=== PATIENT | female | born 1995 | race Two or more races ===

== ENCOUNTER 2019-07-13 21:19 | Emergency (ER) | payer OTHER, MEDICAID ==
[2019-07-13 21:33] VITALS: BP 126/60
--- NOTE | 2019-07-13 21:51 | ED Physician Documentation ---
PD HPI UPPER EXT INJURY - Stated complaint Stated Complaint: RT HAND LAC - Chief complaint Chief Complaint: Laceration - History obtained from History obtained from: Patient PD PAST MEDICAL HISTORY - Past Medical History Past Medical History: Yes Psych: Depression, Anxiety - Past Surgical History Past Surgical History: No - Present Medications Home Medications: Ambulatory Orders Medication Instructions Recorded Confirmed [place] Carbonate 900 mg PO DAILY 07/13/19 07/13/19 Propranolol [Inderal] 10 mg PO DAILY 07/13/19 07/13/19 buPROPion [Wellbutrin Xl] 150 mg PO DAILY 07/13/19 07/13/19 - Allergies Allergies/Adverse Reactions: Allergies Allergy/AdvReac Type Severity Reaction Status Date / Time No Known Drug Allergies Allergy Verified 07/13/19 21:29 - Social History Does the pt smoke?: No Smoking Status: Never smoker Does the pt drink ETOH?: No Does the pt have substance abuse?: No - Immunizations Immunizations are current?: Yes - POLST Patient has POLST: No Results - Vitals Vitals: Vital Signs - 24 hr 07/13/19 21:20 Temperature 36.5 C Heart Rate 64 Respiratory 16 Rate Blood Pressure 126/60 O2 Saturation 100 Oxygen O2 Source Room air
--- NOTE | 2019-07-13 21:51 | ED Physician Documentation ---
History of Present Illness - Stated complaint Stated Complaint: RT HAND LAC - Chief complaint Chief Complaint: Laceration - Additonal information Additional information: This is a 24-year-old female who presents with a laceration to her right hand. Patient was getting ready to cut a lemon and she accidentally sliced herself with a clean knife in her dorsal inter-webspace on her right hand. The bleeding was controlled with a rag. She denies any numbness or tingling and she can move her fingers normally. Her tetanus is up-to-date. Review of Systems Skin: reports: Laceration (s) Musculoskeletal: reports: Extremity pain PD PAST MEDICAL HISTORY - Past Medical History Past Medical History: Yes Psych: Depression, Anxiety - Past Surgical History Past Surgical History: No - Present Medications Home Medications: Ambulatory Orders Medication Instructions Recorded Confirmed [place] Carbonate 900 mg PO DAILY 07/13/19 07/13/19 Propranolol [Inderal] 10 mg PO DAILY 07/13/19 07/13/19 buPROPion [Wellbutrin Xl] 150 mg PO DAILY 07/13/19 07/13/19 - Allergies Allergies/Adverse Reactions: Allergies Allergy/AdvReac Type Severity Reaction Status Date / Time No Known Drug Allergies Allergy Verified 07/13/19 21:29 - Social History Does the pt smoke?: No Smoking Status: Never smoker Does the pt drink ETOH?: No Does the pt have substance abuse?: No - Immunizations Immunizations are current?: Yes - POLST Patient has POLST: No PD ED PE NORMAL - Vitals Vital signs reviewed: Yes - General General: Alert and oriented X 3 - HEENT HEENT: Atraumatic - Respiratory Respiratory: No respiratory distress - Abdomen Abdomen: Non distended - Extremities Extremities: Other (There is a 3 cm laceration in the right first inter- webspace. This extends only in the subcutaneous tissue. Sensation is intact light touch over all aspects of the thumb and first finger, as well as over the hand. There is no exposed bone or tendon, patient has 5-5 strength with extension and flexion of her finger at the MCP PIP and DIP against resistance with the first finger, and normal flexion extension abduction and abduction of her thumb. Capillary refill is brisk.) Results - Vitals Vitals: Vital Signs - 24 hr 07/13/19 21:20 Temperature 36.5 C Heart Rate 64 Respiratory 16 Rate Blood Pressure 126/60 O2 Saturation 100 Oxygen O2 Source Room air Procedures - Laceration (location) R hand Length in cm: 3 Wound type: Linear Neurovascular status: Sensory intact, Motor intact, Vascular intact Tendon involvement: Tendon intact Anesthesia: Lidocaine 1%, With bicarb Wound Preparation: Irrigated copiously NS, Wound explored, To the base Skin layer closure: Nylon, Other (5-0) Other: Patient tolerated well, No complications, Dressing applied, Tetanus UTD Complexity: Simple PD MEDICAL DECISION MAKING - ED course Complexity details: considered differential (Laceration, tendon injury, vascular injury nerve injury) ED course: Patient presents with a simple laceration to her dorsal hand with no signs of tendon nerve or deep structure involvement. it extends only to subcutaneous tissue. Is a clean wound, it was irrigated copiously with normal saline, and repaired as noted above. The end result was excellent with very good wound edge approximation. Wound care and follow-up was discussed with the patient, as well as return precautions with emphasis on signs of infection. Patient agreed with this plan and was discharged home in care of her mother Departure - Departure Disposition: 01 Home, Self Care Clinical Impression: Laceration Condition: Good Instructions: ED Laceration All Follow-Up: Your,PCP [Other] (In 10 days for check for suture removal) Comments: Your cut has been repaired with stitches, please keep a clean bandage over the laceration, you may apply a thin layer of antibiotic ointment over the cut. Your stitches should be checked for removal in 10 days. You may take a shower and wash the hand, but do not scrub at the wound. If you see signs of infection such as redness expanding out from the cut, or pus draining from the wound, or if you are having severe pain in the hand, come back for recheck.
== END 2019-07-13 22:20 | disposition home or self-care (01) ==
LOC: ED 21:19
DX: S61.411A Laceration without foreign body of right hand, initial encounter (principal); W26.0XXA Contact with knife, initial encounter; Y93.G1 Activity, food preparation and clean up; Y99.0 Civilian activity done for income or pay
CPT/HCPCS: 12002; 99281

== ENCOUNTER 2019-11-07 13:51 | Outpatient (CLI) | payer MEDICAID | END 2019-11-07 13:52 | disposition home or self-care (01) | LOC: COV 13:51 | PROVIDERS: ATTEND Family Medicine | DX: R05 Cough (principal); R50.9 Fever, unspecified | CPT/HCPCS: 81599 ==

== ENCOUNTER 2020-11-21 15:43 | Emergency (ER) | payer MEDICAID ==
--- OUTSIDE RECORDS SUMMARY | 2020-11-21 15:52 | EXTERNAL MEDICAL SUMMARY RPT | Continuity of Care Document ---
:1995 Demographics Phone Unavailable Preferred Language Unknown Marital Status Unknown Advent Affiliation Unknown Race Unknown Ethnic Group Unknown Author Organization [facility] Address [address] [phone] Phone Social History date description facility [phone]
[2020-11-21 15:56] VITALS: BP 131/72
[2020-11-21] MEDS ORDERED: LIDOCAINE 2%-EPI 1:100000 20 ML MDV SUBQ STA (16:12)
[2020-11-21] MEDS ORDERED: LIDOCAINE 1%-EPI 1:100000 20 ML MDV SUBQ STA (16:19)
[2020-11-21] MEDS ORDERED: LIDOCAINE 1% 2 ML VIAL MC ONE (16:34)
[2020-11-21] MEDS ORDERED: cefTRIAXone 1 GM VIAL IM STA (16:34)
--- NOTE | 2020-11-21 16:37 | ED Physician Documentation ---
History of Present Illness - Stated complaint Stated Complaint: WOUND ON CHEST - Chief complaint Chief Complaint: General - History obtained from History obtained from: Patient - History of Present Illness Timing: How many weeks ago (1) Pain level max: 7 Pain level now: 7 - Additonal information Additional information: Patient is a 25-year-old female who presents to the emergency department with an abscess to the right breast. She states a small amount was drained several days ago at a clinic in [place]. She states she was on Keflex, but they told her to stop that and placed her on Bactrim instead. She states that today there was spontaneous drainage from the breast of pus. Nothing makes it better or worse. No fevers. No chills. Is not breast-feeding. Does have a nipple piercing. This has been present for 2 years. Denies any possibility of . Review of Systems Constitutional: denies: Fever, Chills Cardiac: denies: Chest pain / pressure Respiratory: denies: Cough GI: denies: Nausea, Vomiting, Diarrhea Skin: denies: Rash Musculoskeletal: denies: Neck pain, Back pain Neurologic: denies: Headache PD PAST MEDICAL HISTORY - Past Medical History Past Medical History: Yes Psych: Depression, Anxiety - Past Surgical History Past Surgical History: No - Present Medications Home Medications: Ambulatory Orders Medication Instructions Recorded Confirmed [place] Carbonate 900 mg PO DAILY 07/13/19 07/13/19 Propranolol [Inderal] 10 mg PO DAILY 07/13/19 07/13/19 buPROPion [Wellbutrin Xl] 150 mg PO DAILY 07/13/19 07/13/19 Cetirizine HCl/Pseudoephedrine 1 each PO BID PRN #30 tab.er.12h 03/03/20 [Zyrtec-D Tablet] Ibuprofen [Motrin] 800 mg PO Q8H PRN #30 tablet 03/03/20 HYDROcod/ACETAM 5/325 [[place] 5/325] 1 - 2 ea PO Q6H PRN #14 tablet 11/21/20 Sulfamethox/Trimeth 800/160 1 each PO BID #14 tablet 11/21/20 [Bactrim Ds 800/160] cephALEXin [Keflex] 500 mg PO Q6H #28 cap 11/21/20 - Allergies Allergies/Adverse Reactions: Allergies Allergy/AdvReac Type Severity Reaction Status Date / Time No Known Drug Allergies Allergy Verified 03/03/20 11:50 - Social History Does the pt smoke?: No Smoking Status: Never smoker Does the pt drink ETOH?: No Does the pt have substance abuse?: No - Immunizations Immunizations are current?: Yes - POLST Patient has POLST: No PD ED PE NORMAL - Vitals Vital signs reviewed: Yes - General General: Alert and oriented X 3, No acute distress - HEENT HEENT: Moist mucous membranes - Neck Neck: Supple, no meningeal sign - Cardiac Cardiac: RRR - Respiratory Respiratory: No respiratory distress, Clear bilaterally - Abdomen Abdomen: Soft, Non tender, Non distended - Derm Derm: Warm and dry - Neuro Neuro: Alert and oriented X 3 - Free text exam Free text exam: Right breast is diffusely cellulitic. There is a small drainable abscess just lateral to the nipple at the 9 o'clock position, this is superficial on ultrasound. There are no deep abscesses visible. Results - Vitals Vitals: Vital Signs - 24 hr 11/21/20 15:50 Temperature 37.1 C Heart Rate 100 Respiratory 14 Rate Blood Pressure 131/72 H O2 Saturation 100 Oxygen O2 Source Room air Procedures - Abscess I&D (location) Right breast Preparation: Confirmed with ultrasound, Chlorhexadine, Lidocaine 1%, With epi Incision: Incised with scalpel, Purulent drainage, Culture obtained Other: Pt tolerated well, Dressing applied, Antibiotic prescribed PD MEDICAL DECISION MAKING - ED course Complexity details: considered differential, d/w patient ED course: 25-year-old female with a right breast abscess and cellulitis. Given a shot of Rocephin here. We will place her on Bactrim and Keflex together. Will prescribe pain medication as well. There was only a small superficial abscess, most of the breast is cellulitis, therefore a small incision was made to drain the abscess. She will run warm water over this 2-3 times daily. Also recommended that she remove her nipple piercing. Patient is not or breast-feeding. The patient will return in 2 days for a wound check. Patient counseled regarding signs and symptoms for which I believe and urgent re- evaluation would be necessary. Patient with good understanding of and agreement to plan and is comfortable going home at this time This document was made in part using voice recognition software. While efforts are made to proofread this document, sound alike and grammatical errors may occur. Departure - Departure Disposition: 01 Home, Self Care Clinical Impression: Breast abscess Condition: Good Instructions: ED Abscess IandD Follow-Up: Provider,Other [Primary Care Provider] - Within 1 week Prescriptions: Sulfamethox/Trimeth 800/160 [Bactrim Ds 800/160] 1 each PO BID #14 tablet cephALEXin [Keflex] 500 mg PO Q6H #28 cap HYDROcod/ACETAM 5/325 [[place] 5/325] 1 - 2 ea PO Q6H PRN #14 tablet PRN Reason: Pain Comments: Return in 2 days for a wound check. Take all antibiotics until gone. We want you on both the Bactrim and Keflex. Will prescribe you pain medication as well. Take a warm shower tonight and let water run over the area that was drained. We did drain a fair amount of pus from your breast tonight. Do not drink alcohol or drive while on narcotic pain medicine. Note that many narcotic pain relievers also contain tylenol/acetaminophen. Please ensure that your total dose of acetaminophen from all sources does not exceed 3 grams (3000mg) per day. You may constipated on this medication, take a stool softener such as "Colace" twice a day while you are on it. Also recommend a [id number] laxative such as senna or MiraLAX any day that you do not have a bowel movement. If you received narcotic pain medication in the emergency department, do not drive or operate machinery for the next 24 hours.
== END 2020-11-21 16:54 | disposition home or self-care (01) ==
LOC: ED 15:43
DX: N61.1 Abscess of the breast and nipple (principal)
CPT/HCPCS: 10060; 87070; 87205

== ENCOUNTER 2020-11-23 17:51 | Emergency (ER) | payer MEDICAID ==
--- OUTSIDE RECORDS SUMMARY | 2020-11-23 17:55 | EXTERNAL MEDICAL SUMMARY RPT | Continuity of Care Document ---
:1995 Demographics Phone Unavailable Preferred Language Unknown Marital Status Unknown Gnosticism Affiliation Unknown Race Unknown Ethnic Group Unknown Author Organization [facility] Address [address] [place] [address] Phone Social History date description facility [phone]
--- OUTSIDE RECORDS SUMMARY | 2020-11-23 18:07 | EXTERNAL MEDICAL SUMMARY RPT | Continuity of Care Document ---
:1995 Demographics Phone Unavailable Preferred Language Unknown Marital Status Unknown Jewish Affiliation Unknown Race Unknown Ethnic Group Unknown Author Organization [facility] Address [address] [place] [address] Phone Social History date description facility [phone]
--- NOTE | 2020-11-23 18:23 | ED Physician Documentation ---
PD HPI WOUND RECHECK - Stated complaint Stated Complaint: WOUND CHECK - Chief complaint Chief Complaint: Wound - Histroy obtained from History obtained from: Patient - Additional information Additional information: Seen here 2 days ago for breast abscess that was incised and drained. She was feeling a little sick overnight that night and yesterday morning but better now. Generally feels like she is improving, no fevers. Review of Systems Constitutional: denies: Fever, Chills Eyes: reports: Reviewed and negative Ears: reports: Reviewed and negative Nose: reports: Reviewed and negative Cardiac: reports: Reviewed and negative PD PAST MEDICAL HISTORY - Past Medical History Psych: Depression, Anxiety - Past Surgical History Past Surgical History: No - Present Medications Home Medications: Ambulatory Orders Medication Instructions Recorded Confirmed [place] Carbonate 900 mg PO DAILY 07/13/19 11/23/20 Ibuprofen [Motrin] 800 mg PO Q8H PRN #30 tablet 03/03/20 11/23/20 HYDROcod/ACETAM 5/325 [[place] 5/325] 1 - 2 ea PO Q6H PRN #14 tablet 11/21/20 11/23/20 Sulfamethox/Trimeth 800/160 1 each PO BID #14 tablet 11/21/20 11/23/20 [Bactrim Ds 800/160] cephALEXin [Keflex] 500 mg PO Q6H #28 cap 11/21/20 11/23/20 Cetirizine HCl/Pseudoephedrine 1 each PO DAILY 11/23/20 11/23/20 [Zyrtec-D Tablet] - Allergies Allergies/Adverse Reactions: Allergies Allergy/AdvReac Type Severity Reaction Status Date / Time No Known Drug Allergies Allergy Verified 11/23/20 18:01 - Social History Does the pt smoke?: No Smoking Status: Never smoker Does the pt drink ETOH?: No Does the pt have substance abuse?: No - Immunizations Immunizations are current?: Yes - POLST Patient has POLST: No PD ED PE NORMAL - Vitals Vital signs reviewed: Yes - General General: Alert and oriented X 3, No acute distress - Extremities Extremities: Other (Some persistent cellulitis around 9:00 of the right breast, exam done with [place] tach. Bedside ultrasound demonstrates no fluid collection.) - Neuro Neuro: Alert and oriented X 3, Normal speech Results - Vitals Vitals: Vital Signs - 24 hr 11/23/20 17:54 Temperature 36.9 C Heart Rate 96 Respiratory 16 Rate Blood Pressure 127/71 O2 Saturation 100 Oxygen O2 Source Room air Departure - Departure Disposition: 01 Home, Self Care Clinical Impression: Breast abscess Condition: Good Record reviewed to determine appropriate education?: Yes Instructions: ED Abscess IandD Comments: Generally looks like it is improving, return if worsening or if you run a fever. Continue the current antibiotics.
[2020-11-23 18:27] VITALS: BP 122/77
== END 2020-11-23 18:35 | disposition home or self-care (01) ==
LOC: ED 17:51
DX: N61.1 Abscess of the breast and nipple (principal); Z48.00 Encounter for change or removal of nonsurgical wound dressing

== ENCOUNTER 2021-08-07 17:56 | Emergency (ER) | payer MEDICAID ==
[2021-08-07] MEDS ORDERED: ALBUTEROL 1 PUFF INH STA (18:42)
--- NOTE | 2021-08-07 18:57 | ED Physician Documentation ---
History of Present Illness - Stated complaint Stated Complaint: COUGH,CHEST TIGHTNESS - Chief complaint Chief Complaint: Resp - Additonal information Additional information: 26-year-old female presents emergency department for evaluation of dry cough for 2 days. No fevers no vomiting. She has had some mild diarrhea. She is fully vaccinated for COVID-19 and denies any sick contacts. She began getting concerned when she was having a hard time catching her breath. Denies any asthma or COPD. Non-smoker. No pertinent past medical history. Takes no prescribed medications with the exception of OCP. Review of Systems Constitutional: denies: Fever, Chills Eyes: reports: Reviewed and negative Ears: reports: Reviewed and negative Nose: reports: Reviewed and negative Throat: reports: Reviewed and negative Cardiac: reports: Reviewed and negative Respiratory: reports: Cough. denies: Dyspnea, Wheezing GI: denies: Abdominal Pain, Nausea, Vomiting : denies: Dysuria, Frequency, Hesitancy Skin: denies: Lesions Musculoskeletal: reports: Reviewed and negative PD PAST MEDICAL HISTORY - Past Medical History Past Medical History: Yes Cardiovascular: None Respiratory: None Neuro: None Endocrine/Autoimmune: None GI: None JOB SITE SUPERVISOR: None : None HEENT: None Psych: Depression, Anxiety, Bipolar disorder Musculoskeletal: None Derm: None - Past Surgical History Past Surgical History: No - Present Medications Home Medications: Ambulatory Orders Medication Instructions Recorded Confirmed [place] Carbonate 900 mg PO DAILY 07/13/19 08/07/21 Albuterol Sulf [Ventolin Hfa 1 - 2 puffs INH Q4HR PRN #1 inhaler 08/07/21 Inhaler] Benzonatate [Tessalon] 200 mg PO TID PRN #20 cap 08/07/21 Citalopram Hydrobromide [Celexa] 20 mg ORAL DAILY 08/07/21 08/07/21 Norethindrone-E.estradiol-Iron 1 each PO DAILY 08/07/21 08/07/21 [[place] 24 Fe 1 mg-20 Mcg Tablet] - Allergies Allergies/Adverse Reactions: Allergies Allergy/AdvReac Type Severity Reaction Status Date / Time No Known Drug Allergies Allergy Verified 08/07/21 18:07 - Social History Does the pt smoke?: No Smoking Status: Never smoker Does the pt drink ETOH?: No Does the pt have substance abuse?: Yes Substance Use and Type: Marijuana - Immunizations Immunizations are current?: Yes - POLST Patient has POLST: No PD ED PE NORMAL - General General: Alert and oriented X 3, No acute distress - HEENT HEENT: PERRL - Cardiac Cardiac: RRR, No murmur, No gallop, Other (Mild tachycardia at rest with a heart rate between 100-110) - Respiratory Respiratory: No respiratory distress, Clear bilaterally - Back Back: No CVA TTP, No spinal TTP - Derm Derm: Normal color, Warm and dry - Extremities Extremities: No deformity, No tenderness to palpate, Normal ROM s pain - Neuro Neuro: Alert and oriented X 3, 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 Eye Opening: Spontaneous Motor: Obeys Commands Verbal: Oriented GCS Score: 15 - Psych Psych: Normal mood Results - Vitals Vitals: Vital Signs - 24 hr 08/07/21 08/07/21 08/07/21 18:02 18:45 19:12 Temperature 36.5 C 37.7 C Heart Rate 124 H 115 H 80 Respiratory 20 20 18 Rate Blood Pressure 124/80 151/73 H O2 Saturation 100 100 Oxygen O2 Source Room air - Rads (name of study) CXR Radiology: Final report received (No acute cardiopulmonary process.) PD MEDICAL DECISION MAKING - ED course Complexity details: reviewed results, re-evaluated patient, considered differential, d/w patient ED course: 26-year-old female presents emergency department for evaluation of 2 days cough, cold, congestion myalgias. No fevers. Fully vaccinated for COVID-19. She typically has a dry cough that gets worse whenever she goes out in the cold or exerts herself too much. No history of asthma. Denies any sick contacts. Initially presented mildly tachycardic with a heart rate in the 120s but after rest here in the ER she has normalized her heart rate into the 80s and 90s. Room air saturations are normal. Chest x-ray was without acute findings. Cardiopulmonary auscultation was unremarkable. Patient was given albuterol MDI here in the emergency department with good relief of her cough. She will be discharged with prescription for Tessalon Perles as well as albuterol. A Covid screen is pending. Patient is advised to maintain quarantine until the results are known. Emergent return precautions otherwise discussed. Departure - Departure Disposition: 01 Home, Self Care Clinical Impression: Upper respiratory infection Qualifiers: URI type: unspecified viral URI Qualified Code(s): J06.9 - Acute upper respirat ory infection, unspecified Condition: Stable Record reviewed to determine appropriate education?: Yes Instructions: ED Viral Syndrome Prescriptions: Albuterol Sulf [Ventolin Hfa Inhaler] 1 - 2 puffs INH Q4HR PRN #1 inhaler PRN Reason: Shortness Of Air/Wheezing Benzonatate [Tessalon] 200 mg PO TID PRN #20 cap PRN Reason: Cough Comments: Denise you are seen in the emergency department today for cough cold and congestion. Your screening chest x-ray is unremarkable. The COVID-19 test we have pending on you may take 2 to 3 days to result. I recommend you maintain quarantine until the results are known. A prescription for some albuterol and Tessalon Perles has been sent to the [facility] in [place]. This can help reduce the severity of your cough. Continue to use a humidifier or steam at home as well as taking a teaspoon of honey. If at any point you develop worsening symptoms, have fevers higher than 103, severe shortness of air or chest pain then please return immediately to the ER for a second evaluation You have a Covid test pending. You need to self quarantine until the result is done and negative. Do not leave your house. Do not get near anybody. The results should be done in 48 to 72 hours. We will call with a positive result, the fastest way to get a negative result for confirmation though is to go to the hospital website at [email or web address], click on the my [facility] tab and sign up for the patient portal. If any friends or family get sick and would like to have a Covid test done, but do not have signs or symptoms that would necessitate being hospitalized, there are multiple local options for Covid testing. [facility] keeps an updated list of testing and vaccination options at [email or web address]
--- NOTE | 2021-08-07 19:15 | XRAY Report ---
PROCEDURE: Chest 1 View X-Ray INDICATIONS: cough TECHNIQUE: One view of the chest was acquired. COMPARISON: None FINDINGS: Surgical changes and devices: None. Lungs and pleura: No pleural effusions or pneumothorax. Lungs are clear. Mediastinum: Mediastinal contours appear normal. Heart size is normal. Bones and chest wall: No suspicious bony lesions. Overlying soft tissues appear unremarkable. IMPRESSION: No acute cardiopulmonary disease process. Reviewed by: Saundra Bragg MD, PhD on 08/07/2021 7:14 PM PST Approved by: Saundra Bragg MD, PhD on 08/07/2021 7:14 PM PST Station ID: [id number]
[2021-08-07 20:03] VITALS: BP 122/78
== END 2021-08-07 20:03 | disposition home or self-care (01) ==
LOC: ED 17:56
DX: J06.9 Acute upper respiratory infection, unspecified (principal); Z20.822 Contact with and (suspected) exposure to COVID-19; R06.09 Other forms of dyspnea
CPT/HCPCS: 94640; 94664; 99282; 99284